=== PATIENT | male | born 1965 | race Caucasian/White ===

== ENCOUNTER → 2019-09-12 16:26 | Outpatient (BNVA) | payer MEDICAID, SELFPAY | PROVIDERS: Family Provider Nurse Practitioner; PCP Nurse Practitioner; Visit Provider Nurse Practitioner | DX: E78.2 Mixed hyperlipidemia (principal); I10 Essential (primary) hypertension; N52.9 Male erectile dysfunction, unspecified; R73.9 Hyperglycemia, unspecified | CPT/HCPCS: 81000 ==

== ENCOUNTER 2019-09-20 12:45 | Outpatient (CLI) | payer MEDICAID, SELFPAY ==
[2019-09-20 13:21] LABS: Alanine Aminotransferase 31 U/L (0-41); Albumin Level 4.1 g/dL (3.5-5.2); Alkaline Phosphatase 115 IU/L (40-130); Anion Gap 14.3 (5-19); Aspartate Amino Transferase 24 U/L (0-40); Blood Urea Nitrogen 16 mg/dL (6-20); Calcium 9.2 mg/dL (8.5-10.5); Carbon Dioxide 25 mmol/L (22-29); Chloride 103 mmol/L (98-107); Chol HDL Ratio 8.65 mg/dL (1.0-5.00); Cholesterol 268 mg/dL (0-200); Globulin 2.9 g/dL (1.3-4.6); Glomerular Filtration Rate 87.6 mL/min (90-130); Glucose 98 mg/dL (65-115); HDL Cholesterol 31 mg/dL (60-100); LDL Cholesterol Calculated 183 mg/dL (50-129); Osmolality Calculated 282 mOsm/kg (285-295); Potassium 4.3 mmol/L (3.5-5.1); Sodium 138 mmol/L (136-145); Total Bilirubin 0.2 mg/dL (0.15-1.2); Triglycerides 272 mg/dL (0-150); VLDL Cholestrol Calculation 54 mg/dL (0-30)
[2019-09-20 13:52] LABS: Estmated Average Glucose 120; Hemoglobin A1C 5.8 % (4.0-6.0)
== END 2019-09-20 12:46 | disposition home or self-care (01) ==
LOC: LAB 12:48
PROVIDERS: Family Provider Nurse Practitioner; PCP Nurse Practitioner; Visit Provider Nurse Practitioner
DX: E78.2 Mixed hyperlipidemia (principal); I10 Essential (primary) hypertension; R73.9 Hyperglycemia, unspecified
CPT/HCPCS: 36415; 80053; 80061; 83036

== ENCOUNTER → 2020-04-24 17:56 | Outpatient (BNVA) | payer MEDICAID, SELFPAY | PROVIDERS: Family Provider Nurse Practitioner; PCP Nurse Practitioner; Visit Provider Nurse Practitioner Family | DX: Z20.828 Contact with and (suspected) exposure to other viral communicable diseases (principal) | CPT/HCPCS: 87635 ==

== ENCOUNTER → 2020-05-16 14:48 | Outpatient (BNVA) | payer MEDICAID, SELFPAY | PROVIDERS: Family Provider Nurse Practitioner; PCP Nurse Practitioner; Visit Provider Nurse Practitioner Family | DX: R07.9 Chest pain, unspecified (principal); M25.511 Pain in right shoulder; G89.29 Other chronic pain; M25.619 Stiffness of unspecified shoulder, not elsewhere classified; M47.22 Other spondylosis with radiculopathy, cervical region; N52.9 Male erectile dysfunction, unspecified; E78.2 Mixed hyperlipidemia; I10 Essential (primary) hypertension | CPT/HCPCS: 71046; 73030 ==

== ENCOUNTER 2020-05-22 13:20 | Outpatient (CLI) | payer MEDICAID, SELFPAY ==
[2020-05-22 13:40] LABS: Basophils % 0.3 %; Eosinophils # 0.7 10^3/uL (0.0-0.8); Eosinophils % 7.6 %; Hematocrit 43.2 % (42.0-52.0); Lymphocytes # 2.3 10^3/uL (0.8-4.8); Lymphocytes % 25.8 %; Mean Corpuscular HGB Conc 32.4 g/dL (30.0-36.0); Mean Corpuscular Hemoglobin 30.4 pg (28.0-34.0); Mean Corpuscular Volume 93.7 fL (80-94); Mean Platelet Volume 9.3 fL (7.4-10.4); Neutrophils # 4.88 10^3/uL (1.8-7.7); Nucleated Red Blood Cells % 0 %; Platelet Count 286 10^3/cmm (130-400); Red Blood Count 4.61 10^6/uL (4.1-5.3); Red Cell Distribution Width 12.9 % (12.1-15.1); White Blood Count 8.9 10^3/uL (4.0-10.0)
[2020-05-22 13:59] LABS: Alanine Aminotransferase 18 U/L (0-41); Albumin Level 3.7 g/dL (3.5-5.2); Alkaline Phosphatase 149 IU/L (40-130); Anion Gap 14.4 (5-19); Aspartate Amino Transferase 16 U/L (0-40); Blood Urea Nitrogen 13 mg/dL (6-20); Calcium 9.4 mg/dL (8.5-10.5); Carbon Dioxide 27 mmol/L (22-29); Chloride 101 mmol/L (98-107); Chol HDL Ratio 3.97 mg/dL (1.0-5.00); Cholesterol 119 mg/dL (0-200); Globulin 3.3 g/dL (1.3-4.6); Glucose 95 mg/dL (65-115); HDL Cholesterol 30 mg/dL (60-100); LDL Cholesterol Calculated 53 mg/dL (50-129); LDL HDL Ratio 1.77 RATIO (0.00-3.22); Osmolality Calculated 286 mOsm/kg (285-295); Potassium 4.4 mmol/L (3.5-5.1); Sodium 138 mmol/L (136-145); Total Bilirubin 0.2 mg/dL (0.15-1.2); Triglycerides 178 mg/dL (0-150)
[2020-05-22 14:12] LABS: Troponin T (5th) Once 10 ng/L (0-15)
== END 2020-05-22 13:21 | disposition home or self-care (01) ==
LOC: LAB 13:23
PROVIDERS: PCP Nurse Practitioner; Visit Provider Nurse Practitioner Family
DX: R07.9 Chest pain, unspecified (principal)
CPT/HCPCS: 36415; 80053; 80061; 84484; 85025

== ENCOUNTER 2020-06-18 15:05 | Outpatient (CLI) | payer MEDICAID, SELFPAY ==
--- NOTE | 2020-06-18 16:00 | MR_ITS ---
WS: [id number] MRI RIGHT SHOULDER NONCONTRAST TECHNIQUE: Sagittal T2, coronal T1, T2 and proton density imaging. Axial gradient PDE imaging. CLINICAL INFORMATION: M25.511 - Pain in right shoulder COMPARISON: None. FINDINGS: Moderate degenerative arthritis AC joint with hypertrophic spurring. Mild edema at the AC joint. Smal l synovial cysts at the AC joint. Slight subacromial spurring. Degenerative subchondral cystic change with edema involving the greater tuberosity. Chronic thinning of the rotator cuff. Tendinopathy in the distal supraspinatus with a tiny undersurfa ce tear at the insertion.. Normal infraspinatus. Chronic thinning of the subscapularis. Normal teres minor. No high-grade rotator cuff tears. Biceps tendon is absent within the bicipital groove and and appears dislocated medially. Degenerative fraying of the glenoid labrum. MR/MR shoulder RT wo con* [id number] IMPRESSION: 1. Degenerative arthritis at the AC joint with small synovial cyst edema. 2. Chronic thinning of the distal supraspinatus with tendinopathy and a tiny u ndersurface tear. 3. Chronic appearing dislocation of the biceps tendon from the bicipital groov e. 4. Degenerative subchondral cystic change at the greater tuberosity with edema .
== END 2020-06-18 15:06 | disposition home or self-care (01) ==
LOC: RADSHAW 15:07
PROVIDERS: PCP Nurse Practitioner; Visit Provider Nurse Practitioner Family
DX: M19.011 Primary osteoarthritis, right shoulder (principal); R60.0 Localized edema
CPT/HCPCS: 73221

== ENCOUNTER 2020-08-15 17:39 | Emergency (ER) | payer MEDICAID, SELFPAY ==
[2020-08-15 18:14] VITALS: BP 119/68; PULSE 84; RESP 22; TEMP 36.6; O2SAT 100; BMI 33.2
[2020-08-15] MEDS: EPINEPHrine 1 mg/mL INJ 0.5 MG IM (18:29)
--- NOTE | 2020-08-15 18:31 | ED_ITS ---
HPI - Allergic Reaction General: Chief complaint: Allergic Reaction Stated complaint: Spreading Rash/Allergic Reaction Time Seen by Provider: 08/15/20 18:23 Source: patient Mode of arrival: ambulatory Limitations: no limitations History of Present Illness: HPI narrative: 55-year-old male who states he started having a rash along with some tongue swelling difficulty breathing 1 to 2 hours ago. He states he is unsure if he is came in contact with anything that he has been allergic to. He states that this happened suddenly. He states he did take Benadryl at home. He denies any worsening improving factors. Patient here is handling secretions well not having any difficulty swallowing. Denies any vomiting diarrhea. MD complaint: allergic reaction Associated symptoms: Deny abdominal pain, nausea or vomiting Review of Systems Const: Denies: fever(s), chills, body aches or change in appetite Eyes: Denies: blurry vision or eye discomfort ENMT: Denies: throat pain or dental pain Card: Denies: chest pain Resp: Denies: dyspnea GI: Denies: abdominal pain, nausea, vomiting or diarrhea : Denies: dysuria Musc: Denies: neck pain or back pain Skin/Breast: Reports: rash and pruritus Neuro: Denies: headache(s) Psych: Denies: depression Otto/Lymph: Denies: easy bruising All/Imm: Reports: urticaria PFSH ED PFSH: Medical History Cervical radiculopathy due to degenerative joint disease of spine CKD (chronic kidney disease) Mixed hyperlipidemia Venous (peripheral) insufficiency Surgical History History of lymph node biopsy Right neck 1999 negative Family History Mother Diabetes Grandmother Diabetes Social History Smoking and tobacco status: current every day smoker Second hand smoke exposure: Yes Smoking risk assessment/counseling performed?: Yes Alcohol intake: unknown Desire information about alcohol rehabilitation?: No Counseling given: No Desire information about substance/drug rehabilitation?: No Counseling given: No Adopted: No Caregiver/support person: No Lives independently: Yes Household members: none Housing: House Marital status: Single Number of children: 3 service: No Current occupational status: disabled Pets and animals: Yes Pets & animals: cat(s) and dog(s) History of recent travel: No Current gender identity: Male Physical Exam Const: COMMON NORMALS: patient oriented x3 and healthy appearing OTHER: mild resp distress HENMT: COMMON NORMALS: normocephalic and atraumatic HEAD & SCALP: normocephalic and atraumatic OTHER: Tongue swelling that is slight. He is handling his secretions well. No posterior throat swelling Eye: COMMON NORMALS: Equal, round and reactive pupils present and EOMs intact bilaterally PUPIL: Yes Equal, round and reactive pupils present Neck/C-Spine: COMMON NORMALS: full ROM and supple Chest: COMMONS NORMALS: normal inspection of the chest and normal palpation of entire chest wall Resp: COMMON NORMALS: normal respiratory effort, No retractions, No use of accessory muscles and clear to auscultation bilaterally AUSCULTATION: clear to auscultation bilaterally Cardio: COMMON NORMALS: regular rate, regular rhythm and No murmurs present (Cardio) RATE: regular rate RHYTHM: regular rhythm GI: COMMON NORMALS: Normal to inspection, nondistended, normoactive bowel sounds present, Soft to palpation, non-tender and no masses PALPATION: Yes Soft to palpation Extremity: COMMON NORMALS: normal to inspection and full ROM Neuro: COMMON NORMALS: patient oriented x3, moves all extremities and no focal motor deficits Psych: COMMON NORMALS: mental status grossly normal, Normal thought process present and cooperative THOUGHT PROCESS: Normal thought process present Skin: COMMON NORMALS: no wounds NARRATIVE SKIN EXAM: Urticarial rash to arms and trunk Course Vital Signs: Vital signs: Vital Signs Temperature 97.8 F 08/15/20 18:14 Pulse Rate 107 H 08/15/20 19:51 Respiratory Rate 18 08/15/20 19:51 Blood Pressure 112/77 08/15/20 19:51 Pulse Oximetry 98 08/15/20 19:51 MDM - Allergic Reaction MDM Narrative: Medical decision making narrative: Patient presents here with allergic reaction with urticaria. Had some very mild tongue swelling that resolved here after epinephrine. Patient observed for 2 hours and he is well- appearing here and in no distress. We will place him on an EpiPen for home. He is to follow-up his PCP and return if worsening. He understands and agrees to plan. Discharge Plan Discharge Patient Disposition: Home Clinical Impression: Urticaria Allergic reaction Qualifiers: Encounter type: initial encounter Qualified Code(s): T78.40XA - Allergy, unspecified, initial encounter Condition: Stable Prescriptions: New EpiPen 2-Gaudencio 0.3 mg/0.3 mL auto-injector 0.3 mg IM Q20M PRN (Reason: anaphylaxis) Qty: 2 RF: 0 No Action nitroglycerin 0.4 mg tablet, sublingual 0.4 mg sublingual Q5M PRN (Reason: chest pain) 30 Days Qty: 30 RF: 2 sildenafil [Viagra] 100 mg tablet 100 mg PO DAILY PRN (Reason: sexual activity) Qty: 7 RF: 0 gabapentin 300 mg capsule 300 mg PO TID Qty: 90 RF: 2 nortriptyline 25 mg capsule 25 mg PO .HS Qty: 30 RF: 2 rosuvastatin 20 mg tablet 20 mg PO QDAY Qty: 30 RF: 2 lisinopril 20 mg tablet 20 mg PO DAILY Qty: 30 RF: 2 hydroxyzine HCl 50 mg tablet 50 mg PO TID RF: 0 triamcinolone acetonide 0.1 % cream 1 applic topical TID Qty: 80 RF: 0 Discharge Orders: Discharge ED (Routine); Ordered 08/15/20 Ordered By: Ezequiel Velez Referrals: Chiara Atkinson, [facility] [Primary Care Provider] - 1-3 days Discharge Diet: Advance as tolerated Discharge Activity: Resume usual activity Patient Instructions: Allergic Reaction Coding Level of Care Code ED [employer]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
[2020-08-15] MEDS: famotidine 20 mg/2 mL INJ 40 MG IVP (18:53)
[2020-08-15] MEDS: diphenhydrAMINE 50 mg/mL SDV 1mL 25 MG IVP (18:53)
[2020-08-15 19:07] VITALS: RESP 22; O2SAT 98
[2020-08-15 19:51] VITALS: BP 112/77; PULSE 107; RESP 18; O2SAT 98
== END 2020-08-15 20:01 | disposition home or self-care (01) ==
PROVIDERS: Emergency Provider Emergency Medicine; PCP Nurse Practitioner
DX: L50.9 Urticaria, unspecified (principal); T78.40XA Allergy, unspecified, initial encounter; E78.2 Mixed hyperlipidemia; F17.210 Nicotine dependence, cigarettes, uncomplicated
CPT/HCPCS: 96372; 96374; 96375; 99283; J0171; J1200; J2930; J3490

== ENCOUNTER 2021-08-26 13:40 | Outpatient (CLI) | payer MEDICAID, SELFPAY ==
[2021-08-26 14:29] LABS: Alanine Aminotransferase 36 U/L (0-41); Albumin Level 4.3 g/dL (3.5-5.2); Alkaline Phosphatase 149 IU/L (40-130); Anion Gap 15.3 (5-19); Aspartate Amino Transferase 25 U/L (0-40); Blood Urea Nitrogen 21 mg/dL (6-20); Calcium 9.8 mg/dL (8.5-10.5); Carbon Dioxide 26 mmol/L (22-29); Chloride 102 mmol/L (98-107); Chol HDL Ratio 3.95 mg/dL (1.0-5.00); Cholesterol 154 mg/dL (0-200); Globulin 3.3 g/dL (1.3-4.6); Glucose 97 mg/dL (65-115); HDL Cholesterol 39 mg/dL (60-100); LDL Cholesterol Calculated 60 mg/dL (50-129); Osmolality Calculated 291 mOsm/kg (285-295); Potassium 4.3 mmol/L (3.5-5.1); Sodium 139 mmol/L (136-145); Total Bilirubin 0.2 mg/dL (0.15-1.2); Total Protein 7.6 g/dL (6.6-8.7); Triglycerides 277 mg/dL (0-150); VLDL Cholestrol Calculation 55 mg/dL (0-30)
== END 2021-08-26 13:41 | disposition home or self-care (01) ==
LOC: LAB 13:46
PROVIDERS: PCP Nurse Practitioner; Visit Provider Nurse Practitioner
DX: I10 Essential (primary) hypertension (principal)
CPT/HCPCS: 80053; 80061

== ENCOUNTER → 2022-04-25 10:00 | Outpatient (BNVA) | payer MEDICAID, SELFPAY | PROVIDERS: PCP Nurse Practitioner; Visit Provider Nurse Practitioner | DX: F17.200 Nicotine dependence, unspecified, uncomplicated (principal); R05.9 Cough, unspecified; M47.22 Other spondylosis with radiculopathy, cervical region; G47.00 Insomnia, unspecified; I10 Essential (primary) hypertension; B35.4 Tinea corporis; N52.9 Male erectile dysfunction, unspecified; E78.2 Mixed hyperlipidemia | CPT/HCPCS: 80053; 80061 ==

== ENCOUNTER 2022-05-27 15:43 | Outpatient (CLI) | payer MEDICAID, SELFPAY ==
--- NOTE | 2022-05-27 16:30 | CT_ITS ---
WS: [id number] LDCT LUNG CANCER SCREENING HISTORY: F17.200 - Nicotine dependence, unspecified, uncomplicated TECHNIQUE: Axial imaging performed from the apices to 1 cm below the costophrenic angles. Coronal and sagittal reformats are submitted with axial MIP series. All CT scans at [facility] use at least one of these dose optimization techniques: automated exposure control; mA and/or kV adjustment per patient size (includes targeted exams where dose is matched to clinical indication); or iterativ e reconstruction. DLP: 75.39 mGy.cm DIvol: Mean CTDIvol: 1.60 (mGy) COMPARISON: None available. Diagnostic quality: Limited by breathing artifact. Lung Nodules: No pulmonary mass or nodule identified. No endobronchial lesion. There are benign calci fications at the RIGHT hilum and RIGHT middle lobe. RIGHT upper lobe calcified granuloma. Lungs: Mild emphysema. Heart: Mild cardiomegaly. No pericardial effusion. Other findings: Mild atherosclerotic plaque within the aorta. No mediastinal or hilar adenopathy. No adrenal mass. Mild degenerative spondylitic changes throughout the thoracic spine. CT/CT lung screening [id number] IMPRESSION: LUNG-RADS: 1-Negative FOLLOW UP: 12 Month: Continue annual screening with LDCT OTHER FINDINGS (S MODIFIER): None.
== END 2022-05-27 15:44 | disposition home or self-care (01) ==
LOC: RAD 15:46
PROVIDERS: PCP Nurse Practitioner; Visit Provider Nurse Practitioner
DX: Z12.2 Encounter for screening for malignant neoplasm of respiratory organs (principal); F17.200 Nicotine dependence, unspecified, uncomplicated
CPT/HCPCS: 71271

== ENCOUNTER → 2023-06-25 13:49 | Outpatient (BNVA) | payer MEDICAID, SELFPAY | PROVIDERS: PCP Nurse Practitioner; Visit Provider Nurse Practitioner | DX: I10 Essential (primary) hypertension (principal) | CPT/HCPCS: 80053; 80061; 82607; 84403; 84443; 85025 ==

== ENCOUNTER 2023-12-18 09:43 | Outpatient (CLI) | payer MEDICAID, SELFPAY ==
--- NOTE | 2023-12-18 09:47 | XR_ITS ---
WS: [id number] Examination: XR lumbar spine 2-3V* [id number] Reason for Exam: M54.50 - Low back pain, unspecified Date: 12/18/2023 Comparison: None. Findings: The pedicles and the bone density are intact. There is no anterior wedging or compression of the lumbar vertebra. There is suspected old minimal wedging of T11. Subtle retrolisthesis at L3-4 is noted with minimal anterolisthesis at L5-S1 is identified. Diffuse degenerative disc disease is identified. There is disc base narrowing. Anterior lipping is pr esent. Facet arthropathy is noted. Significant degenerative changes of the right hip are noted. XR/XR lumbar spine 2-3V* [id number] Impression: There is no lumbar wedging. Alignment as above. Diffuse degenerative changes of the lumbar spine are noted. Degenerative change s of the right hip are noted as well.
[2023-12-18 10:36] LABS: Alanine Aminotransferase 23 U/L (0-41); Albumin Level 4.1 g/dL (3.5-5.2); Alkaline Phosphatase 163 U/L (40-130); Blood Urea Nitrogen 15 mg/dL (6-20); Calcium 9.1 mg/dL (8.5-10.5); Carbon Dioxide 25 mmol/L (22-29); Chloride 101 mmol/L (98-107); Chol HDL Ratio 4.03 mg/dL (1.0-5.00); Cholesterol 137 mg/dL (0-200); Globulin 3.3 g/dL (1.3-4.6); Glomerular Filtration Rate 68.5 mL/min (90-130); Glucose 93 mg/dL (65-115); HDL Cholesterol 34 mg/dL (60-100); LDL Cholesterol Calculated 71 mg/dL (50-129); Osmolality Calculated 287 mOsm/kg (285-295); Prostate Specific Antigen Scr 1.37 ng/mL (0-4); Sodium 138 mmol/L (136-145); Total Bilirubin 0.2 mg/dL (0.15-1.2); Total Protein 7.4 g/dL (6.6-8.7); Triglycerides 161 mg/dL (0-150); VLDL Cholestrol Calculation 32 mg/dL (0-30)
[2023-12-18 10:41] LABS: Aspartate Amino Transferase 22 U/L (0-40)
== END 2023-12-18 09:44 | disposition home or self-care (01) ==
LOC: LAB 09:44
PROVIDERS: PCP Nurse Practitioner; Visit Provider Nurse Practitioner
DX: Z12.5 Encounter for screening for malignant neoplasm of prostate (principal); I10 Essential (primary) hypertension; M51.36 Other intervertebral disc degeneration, lumbar region; M48.061 Spinal stenosis, lumbar region without neurogenic claudication
CPT/HCPCS: 36415; 72100; 80053; 80061; G0103

== ENCOUNTER → 2024-02-11 14:38 | Outpatient (BNVA) | payer MEDICAID, SELFPAY | PROVIDERS: PCP Nurse Practitioner; Visit Provider Dermatology | DX: L82.1 Other seborrheic keratosis (principal); B07.8 Other viral warts; L90.5 Scar conditions and fibrosis of skin; I87.2 Venous insufficiency (chronic) (peripheral); L21.8 Other seborrheic dermatitis; L57.8 Other skin changes due to chronic exposure to nonionizing radiation; D18.01 Hemangioma of skin and subcutaneous tissue; L81.4 Other melanin hyperpigmentation | CPT/HCPCS: 17110; 99204 ==

== ENCOUNTER → 2024-07-04 13:23 | Outpatient (BNVA) | payer MEDICAID, SELFPAY | PROVIDERS: PCP Nurse Practitioner; Visit Provider Nurse Practitioner | DX: I10 Essential (primary) hypertension (principal); E55.9 Vitamin D deficiency, unspecified | CPT/HCPCS: 80053; 80061; 82306; 82607 ==

== ENCOUNTER 2025-01-18 14:20 | Outpatient (CLI) | payer MEDICAID, SELFPAY ==
--- NOTE | 2025-01-18 14:00 | CT_ITS ---
WS: [id number] LDCT LUNG CANCER SCREENING TECHNIQUE: Noncontrast CT of the chest with coronal and sagittal reformatted images. CLINICAL INFORMATION: F17.200 - Nicotine dependence, unspecified, uncomplicated COMPARISON: 2022 DLP: 117.02 mGy.cm DIvol: Mean CTDIvol: 2.60 (mGy) All CT scans at [facility] use at least one of these dose optimization techniques: automated exposure control; mA and/or kV adjustment per patient size (includes targeted exams where dose is matched to clinical indication); or iterative reconstruction. FINDINGS: A few calcified granulomas. RIGHT lower lobe semisolid nodule measuring 6 mm. Subpleural nodule RIGHT lower lobe measuring 4 mm. These are unchanged from previous. Slight RIGHT basilar hazy atelectasis. Small subpleural nodule LEFT lower lobe measuring 4 mm few tiny scattered micronodules in the RIGHT upper lobe and LEFT lower lobe Mild chronic emphysematous changes. Cardiomegaly. Aortic calcification. No mediastinal or hilar lymphadenopathy. Spondylitic changes thoracic spine. Adrenal glands are normal. Coronary calcification. Calcified RIGHT hilar nodes. No axillary lymphadenopathy.a CT/CT lung screening [id number] IMPRESSION: LUNG-RADS: 2-Benign Appearance or Behavior FOLLOW UP: 12 Month: Continue annual screening with LDCT
--- NOTE | 2025-01-18 14:30 | XR_ITS ---
WS: [id number] Right hip, AP and frog-leg views, 01/18/2025 Clinical Data: M25.551 - Pain in right hip Comparison: None. Findings: No fractures or dislocations are seen. The right hip shows narrowing sclerosis and deformity of the right femoral head. The soft tissues are not remarkable. The adjacent pelvis is normal. XR/XR hip RT 2-3V wo/w pel* [id number] Impression: Osteoarthritis of the right hip.
[2025-01-18 15:27] LABS: Hematocrit 50.0 % (37-53); Hemoglobin 16.50 g/dL (11.27-16.99); Mean Corpuscular HGB Conc 33.0 g/dL (30-55); Mean Corpuscular Hemoglobin 31.3 pg (27-33); Mean Corpuscular Volume 94.9 fl (82-101); Nucleated Red Blood Cells % 0 %; Platelet Count 248 10^3/cmm (157-399); Red Blood Count 5.27 10^6/uL (3.85-5.65); White Blood Count 5.87 10^3/uL (3.29-11.43)
[2025-01-18 16:27] LABS: Alanine Aminotransferase 21 U/L (0-41); Albumin Level 4.2 g/dL (3.5-5.2); Alkaline Phosphatase 152 U/L (40-130); Aspartate Amino Transferase 21 U/L (0-40); Blood Urea Nitrogen 13 mg/dL (8-23); Calcium 9.5 mg/dL (8.5-10.5); Carbon Dioxide 27 mmol/L (22-29); Chloride 101 mmol/L (98-107); Cholesterol 182 mg/dL (0-200); Creatinine Clr Calc Pharmacy 101.4018; Globulin 3.7 g/dL (1.3-4.6); Glucose 87 mg/dL (65-115); HDL Cholesterol 39 mg/dL (60-100); Osmolality Calculated 287 mOsm/kg (285-295); Sodium 139 mmol/L (136-145); Thyroid Stimulating Hormone 1.56 uIU/mL (0.27-4.20); Total Protein 7.9 g/dL (6.6-8.7); Triglycerides 155 mg/dL (0-150); VLDL Cholestrol Calculation 31 mg/dL (0-30); Vitamin B12 371 pg/mL (232-1245)
[2025-01-18 16:28] LABS: Anion Gap 15.5 (5-19); Potassium 4.5 mmol/L (3.5-5.1)
== END 2025-01-18 14:21 | disposition home or self-care (01) ==
LOC: RAD 14:24
PROVIDERS: PCP Nurse Practitioner; Visit Provider Nurse Practitioner
DX: M16.11 Unilateral primary osteoarthritis, right hip (principal); Z12.2 Encounter for screening for malignant neoplasm of respiratory organs; Z12.5 Encounter for screening for malignant neoplasm of prostate; F17.200 Nicotine dependence, unspecified, uncomplicated; I10 Essential (primary) hypertension; E78.2 Mixed hyperlipidemia; E55.9 Vitamin D deficiency, unspecified; J98.4 Other disorders of lung; R91.8 Other nonspecific abnormal finding of lung field; J98.11 Atelectasis; J43.9 Emphysema, unspecified
CPT/HCPCS: 36415; 71271; 73502; 80053; 80061; 82306; 82607; 84443; 85025; G0103